=== PATIENT | male | born 1995 | race African-American/Black ===

== ENCOUNTER 2018-11-14 11:54 | Emergency (ER) | payer SELFPAY ==
[~2018-11-14] VITALS: Ht 190.5 cm; Wt 77.1 kg
[2018-11-14 12:07] VITALS: BP 118/61
--- NOTE | 2018-11-14 12:23 | PHYS DOC ---
Past Medical History Past Medical History: No Pertinent History Past Surgical History: No Surgical History Alcohol Use: None Drug Use: None Adult General Chief Complaint Chief Complaint: HAND PROBLEM HPI HPI Patient is a 23 year old AA male who presents to the emergency department with complaints of right hand pain and swelling after punching a wall at approximately 1700 last night. Patient states he was angry and decided to punch the wall. He has not taken anything for relief of this pain, currently reports pain is 8/10 on the pain scale. She denies any pain in his right wrist, he denies any pain in his right fingers. He states that the pain is over the metacarpals. Review of Systems Review of Systems Constitutional: Denies fever or chills [] Musculoskeletal: See HPI Integument: Denies rash or skin lesions; see HPI [] Neurologic: Denies headache, focal weakness or sensory changes [] All other systems were reviewed and found to be within normal limits, except as documented in this note. Current Medications Current Medications Current Medications Medications (Trade) Dose Ordered Sig/Fatmata Start Time Stop Time Status Last Admin Dose Admin Acetaminophen/ Hydrocodone Bitart (Lortab 5/325) 1 tab 1X ONCE 11/14/18 12:30 11/14/18 12:31 DC 11/14/18 12:30 1 TAB Allergies Allergies Allergies Coded Allergies Type Severity Reaction Last Updated Verified No Known Drug Allergies 11/14/18 No Physical Exam Physical Exam Constitutional: Well developed, well nourished, no acute distress, non-toxic appearance. [] HENT: Normocephalic, atraumatic, bilateral external ears normal, nose normal. [ ] Eyes: conjunctiva normal, no discharge. [] Skin: Warm, dry, no erythema, no rash, no bruising. [] Extremities: R hand generalized tenderness over metacarpals, no palpable crepitus or deformities, no cyanosis, no clubbing, ROM intact, 1+ edema R hand, RUE radial pulse 2+ [] Neurologic: Alert and oriented X 3, normal motor function, normal sensory function, no focal deficits noted. [] Psychologic: Affect normal, judgement normal, mood normal. [] Current Patient Data Vital Signs Vital Signs Date Time Temp Pulse Resp B/P (MAP) Pulse Ox O2 Delivery O2 Flow Rate FiO2 11/14/18 12:30 18 97 Room Air 11/14/18 12:07 98.1 78 118/61 (80) 98.1 EKG EKG [] Radiology/Procedures Radiology/Procedures PROCEDURE: HAND RIGHT 3V Indication:RIGHT HAND PAIN SINCE LAST NIGHT AFTER PUNCHING WALL TECHNIQUE: 3 views of right hand COMPARISON: None FINDINGS/ impression: Nondisplaced fracture is seen of the proximal metaphysis of the third metacarpal bone with no extension to the articular surface. Mild dorsal soft tissue swelling noted. [] Course & Med Decision Making Course & Med Decision Making Pertinent Labs and Imaging studies reviewed. (See chart for details) [] Dragon Disclaimer Dragon Disclaimer This electronic medical record was generated, in whole or in part, using a voice recognition dictation system. Departure Departure Impression: Primary Impression: Metacarpal bone fracture Disposition: 01 HOME, SELF-CARE Condition: STABLE Referrals: TASNEEM MODI MD Patient Instructions: Hand Fracture, Metacarpals, [id number] Additional Instructions: Fill prescription(s) and use as directed. Recommend application of ice, elevation, and rest of affected extremity. Wear the splint that was placed until follow up appointment with Dr. Modi, call in the morning to schedule an appointment. Return to the ER if your symptoms worsen. Scripts Hydrocodone Bit/Acetaminophen (HYDROCODONE-APAP 5-325 ) 1 Tab Tablet 1 TAB PO PRN Q6HRS PRN for PAIN for 5 Days, #20 TAB 0 Refills Prov: MARC CHE APRN 11/14/18 Splinting Splinting : Pre-Made Type: velcro Splint: wrist Pre-Proc Neuro Vasc Exam: normal Post-Proc Neuro Vasc Exam: normal, unchanged from pre-exam Problem Qualifiers Primary Impression: Metacarpal bone fracture Encounter type: initial encounter Metacarpal bone: third Fracture type: closed Metacarpal location: shaft Fracture alignment: nondisplaced Laterality: right Qualified Codes: S62.352A - Nondisplaced fracture of shaft of third metacarpal bone, right hand, initial encounter for closed fracture MARC CHE [employer] Nov 14, 2018 12:23
[2018-11-14] MEDS ORDERED: HYDROcodone/APAP 5/325MG 1 TAB TABLET PO ONE (12:30)
--- NOTE | 2018-11-14 12:57 | RAD ---
Indication:RIGHT HAND PAIN SINCE LAST NIGHT AFTER PUNCHING WALL TECHNIQUE: 3 views of right hand COMPARISON: None FINDINGS/ impression: Nondisplaced fracture is seen of the proximal metaphysis of the third metacarpal bone with no extension to the articular surface. Mild dorsal soft tissue swelling noted. Electronically signed by: Papo Hernandes DO (11/14/2018 12:54 PM) [facility]
[2018-11-14] MEDS ORDERED: HYDR-2761 PO (13:20)
== END 2018-11-14 13:37 | disposition home or self-care (01) ==
LOC: ER 11:54
DX: S62.352A Nondisplaced fracture of shaft of third metacarpal bone, right hand, initial encounter for closed fracture (principal); W22.01XA Walked into wall, initial encounter; Y93.89 Activity, other specified; Y92.89 Other specified places as the place of occurrence of the external cause; Y99.8 Other external cause status
CPT/HCPCS: 29125; 73130; 99283